=== PATIENT | female | born 1935 | race Caucasian/White ===

== ENCOUNTER 2018-09-25 10:02 | Inpatient (IN) | payer OTHER, BC ==
--- NOTE | 2018-09-25 06:27 | PDHPUP ---
History & Physical Update H&P update statement: This history and physical update is based on an assessment of the patient which was completed after admission or registration (within 24 hours), but prior to the surgery/procedure. H&P update: H&P reviewed & patient examined, no change in patient's condition since H&P completed
[~2018-09-25 10:02] MED LIST: TRANEXAMIC ACID 3,000 MG/50 ML BAG IRR ONE
[2018-09-25] MEDS ORDERED: ACETAMINOPHEN 325 MG TAB PO ONE (10:20)
[2018-09-25] MEDS ORDERED: FAMOTIDINE 20 MG TAB PO ONE (10:20)
[2018-09-25] MEDS ORDERED: DEXAMETHASONE 4 MG/ML VIAL IVP ONE (10:20)
[2018-09-25] MEDS ORDERED: ceFAZolin 2 GM/DEXTROSE 100 ML IV ONE (10:20)
[2018-09-25] MEDS ORDERED: LR 1,000 ML IV ONE (10:21)
[2018-09-25] MEDS ORDERED: LIDOCAINE 1% 2 ML INJ ID PRN (10:21)
[2018-09-25] MEDS ORDERED: ROPIVACAINE 0.2% 80 MG, EPINEPHrine 0.2 MG, KETOROLAC TROMETHAMINE 30 MG in SYRINGE 0 ML IU ONE (12:00)
[2018-09-25] MEDS ORDERED: TRANEXAMIC ACID 3,000 MG in NS (SYRINGE) 50 ML IRR ONE (12:00)
[2018-09-25] MEDS ORDERED: HYDROmorphONE/DILAUDID 2 MG/ML INJ IVP PRN (12:05)
[2018-09-25] MEDS ORDERED: MIDAZOLAM 2 MG/2 ML VIAL IVP ONE (12:05)
[2018-09-25] MEDS ORDERED: oxyCODONE IR 5 MG TAB PO PRN ×2 (12:05→13:43)
[2018-09-25] MEDS ORDERED: NALOXONE HCL 0.4 MG/ML INJ IVP PRN (12:05)
[2018-09-25] MEDS ORDERED: ACETAMINOPHEN 500 MG TAB PO PRN (12:05)
[2018-09-25] MEDS ORDERED: PROMETHAZINE HCL 25 MG/ML INJ IVP PRN ×2 (12:05→13:43)
[2018-09-25] MEDS ORDERED: ONDANSETRON 4 MG/2 ML VIAL IVP PRN ×2 (12:05→13:43)
--- NOTE | 2018-09-25 12:05 | PDANEPAE ---
ANE History of Present Illness R TKA ANE Past Medical History - Cardiovascular History Hx Hypertension: Yes Hx Arrhythmias: No Hx Chest Pain: No Hx Coronary Artery / Peripheral Vascular Disease: No Hx CHF / Valvular Disease: No Hx Palpitations: No - Pulmonary History Hx COPD: No Hx Asthma/Reactive Airway Disease: No Hx Recent Upper Respiratory Infection: No Hx Oxygen in Use at Home: No Hx Sleep Apnea: No Sleep Apnea Screening Result - Last Documented: Negative - Neurologic History Hx Cerebrovascular Accident: No Hx Seizures: No Hx Dementia: No - Endocrine History Hx Diabetes: No - Renal History Hx Renal Disorders: No - Liver History Hx Hepatic Disorders: No - Neurological & Psychiatric Hx Hx Neurological and Psychiatric Disorders: No - Cancer History Hx Cancer: No Cancer History Comment: COLON CA IN PAST - Congenital Disorder History Hx Congenital Disorders: No - GI History Hx Gastrointestinal Disorders: No - Other Health History Other Health History: PSORIASIS - Chronic Pain History Chronic Pain: No - Surgical History Prior Surgeries: ARTHROSCOPY R KNEE. COLON RESECTION. COLONOSCOPY ANE Review of Systems Review of Systems: - Exercise capacity METS (RN): 4 METS ANE Patient History - Allergies Allergies/Adverse Reactions: No Known Allergies Allergy (Verified 09/12/18 12:44) - Home Medications Home Medications: Atorvastatin Calcium [Lipitor 20 mg (*)] 20 mg PO Q2D 09/12/18 [Last Taken 09/23] Losartan/Hctz 50/12.5 [Hyzaar 50/12.5MG (*)] 0.5 tab PO DAILY 09/12/18 [Last Taken 09/25/18 08:30] - NPO status NPO Since - Liquids (Date): 09/25/18 NPO Since - Liquids (Time): 08:30 NPO Since - Solids (Date): 09/24/18 NPO Since - Solids (Time): 19:00 - Smoking Hx Smoking Status: Never smoked ANE Labs/Vital Signs - Vital Signs Blood Pressure: 124/87 Heart Rate: 72 Respiratory Rate: 16 O2 Sat (%): 93 Height: 157.48 cm Weight: 69.4 kg ANE Physical Exam - Airway Neck exam: FROM Mallampati Score: Class 2 Mouth exam: normal dental/mouth exam - Pulmonary Pulmonary: clear to auscultation - Cardiovascular Cardiovascular: regular rate and rhythym - ASA Status ASA Status: II ANE Anesthesia Plan Anesthesia Plan: spinal
[2018-09-25] MEDS ORDERED: LIDOCAINE 2% 5 ML SDV ONE (12:16)
[2018-09-25] MEDS ORDERED: PROPOFOL/EMULSION 500 MG/50 ML BOTTLE IV ONE (12:16)
[2018-09-25] MEDS ORDERED: BUPIVACAINE/DEXTROSE 7.5MG/ML 2 ML SPINAL AMP SP ONE (12:19)
[2018-09-25] MEDS ORDERED: VANCOMYCIN 1 GM VIAL ONE (12:29)
[2018-09-25] MEDS ORDERED: fentaNYL 100 MCG/2 ML INJ ONE ×2 (12:37→14:17)
[2018-09-25] MEDS ORDERED: ROPIVACAINE HCL 150 MG/30 ML INJ ONE (13:24)
[2018-09-25] MEDS ORDERED: PROMETHAZINE HCL 25 MG SUPPR PR PRN (13:43)
[2018-09-25] MEDS ORDERED: TEMAZEPAM 15 MG CAP PO PRN (13:43)
[2018-09-25] MEDS ORDERED: diphenhydrAMINE 25 MG CAP PO PRN (13:43)
[2018-09-25] MEDS ORDERED: BISACODYL 10 MG SUPP PR PRN (13:43)
[2018-09-25] MEDS ORDERED: POLYETHYLENE GLYCOL 3350 17 GM PKT PO PRN (13:43)
[2018-09-25] MEDS ORDERED: CYCLOBENZAPRINE 10 MG TAB PO PRN (13:43)
[2018-09-25] MEDS ORDERED: DIPHENOXYLATE/ATROPINE LOMOTIL 1 TAB PO PRN (13:43)
[2018-09-25] MEDS ORDERED: MAGNESIUM HYDROXIDE 30 ML UDCUP PO PRN (13:43)
[2018-09-25] MEDS ORDERED: ONDANSETRON DISINTEGRATING 4 MG TAB PO PRN (13:43)
[2018-09-25] MEDS ORDERED: METOCLOPRAMIDE 10 MG/2 ML VIAL IVP PRN (13:43)
[2018-09-25] MEDS ORDERED: LACTULOSE 20 GM/30 ML UDCUP PO PRN (13:43)
--- NOTE | 2018-09-25 13:43 | POSTOPPROG ---
Post Op Note Date of Operation: 09/25/18 Surgeon: Dionicio Fuentes Doughnut Batter Mixer: arlene fuentes PA-C and Mabel Tidwell PA-C Anesthesiologist: dr. hilton Anesthesia: Spinal, Other (Specify) (adductor canal block) Pre-op Diagnosis: right knee OA Post-op Diagnosis: same Indication: right knee pain Procedure: R TKA Findings: severe knee OA Inf/Abcess present in the surg proc area at time of surgery?: No EBL: 50-100
--- NOTE | 2018-09-25 13:54 | POSTANESTH ---
Post Anesthetic Evaluation Cardiovascular Status: Normal, Stable Respiratory Status: Normal, Stable Level of Consciousness/Mental Status: Can Participate in Eval, Alert and Oriented Pain Control: Adequate, Prn Tx Ordered Nausea/Vomiting Control: Adequate, Prn Tx Ordered Complications Possibly Related to Anesthesia: None Noted
[2018-09-25] MEDS ORDERED: LR 1,000 ML IV SCH (14:00)
--- NOTE | 2018-09-25 14:12 | PDMN ---
Medical Necessity Medical necessity: [facility] S700 Knee Arthroplasty, Total, A-2 days: 83 yo s/p R TKA , meets IP criteria for advanced age, pain control, Hx HTN, colon ca.
[2018-09-25] MEDS: fentaNYL 100 MCG/2 ML INJ IVP PRN ×2 (14:19→15:18)
[2018-09-25] MEDS ORDERED: oxyCODONE IR 5 MG TAB ONE (15:25)
[2018-09-25] MEDS: ACETAMINOPHEN 325 MG TAB PO SCH ×2 (18:38→23:00)
[2018-09-25] MEDS: SENNOSIDES/DOCUSATE SODIUM TAB PO SCH (21:29)
[2018-09-25] MEDS: FAMOTIDINE 20 MG TAB PO SCH (21:29)
[2018-09-25] MEDS: ASPIRIN 81 MG CHEWABLE TAB PO SCH (21:29)
[2018-09-25] MEDS: ceFAZolin 2 GM/DEXTROSE 100 ML IV SCH (21:30)
[2018-09-26] MEDS: ceFAZolin 2 GM/DEXTROSE 100 ML IV SCH (05:28)
[2018-09-26] MEDS: ACETAMINOPHEN 325 MG TAB PO SCH ×2 (05:28→11:32)
[2018-09-26] MEDS: ASPIRIN 81 MG CHEWABLE TAB PO SCH (08:34)
[2018-09-26] MEDS: FAMOTIDINE 20 MG TAB PO SCH (08:34)
[2018-09-26] MEDS: SENNOSIDES/DOCUSATE SODIUM TAB PO SCH (08:34)
[2018-09-26 08:37] VITALS: BP 99/59
[2018-09-26] MEDS ORDERED: LOSARTAN/HCTZ 50/12.5 1 TAB PO SCH (09:00)
--- NOTE | 2018-09-26 10:53 | SOAPPROG ---
SOAP Progress Note Assessment/Plan: Assessment: Patient is doing well POD 1 s/p R TKA Pain management: pain is well controlled on oral pain meds. VTE ppx: recommend aspirin 81 mg BID for 4 weeks, cont MARTHA and SCDs Anemia: level is expected initially postop. Asymptomatic. Continue to monitor D/c planning: Patient has done better than anticipated and would like to be discharged to home today. Patient must be released from PT before discharge to home. Plan: 09/26/18 10:51 Subjective: patient is doing well ,denies chest pain and n/v Objective: Vital Signs Temp Pulse Resp BP Pulse Ox 36.6 C 62 17 99/59 L 93 09/26/18 07:30 09/26/18 07:30 09/26/18 07:30 09/26/18 08:37 09/26/18 07:30 Laboratory Results 09/26/18 05:02 09/26/18 05:02 09/25/18 09/26/18 09/27/18 05:59 05:59 05:59 Intake Total 800 400 Output Total 380 400 Balance 420 0 RLE: incision dressing is clean and dry, NVI, +pf/df ICD10 Worksheet Patient Problems: Problems Problem Status Onset Primary localized osteoarthritis of right knee Acute
--- NOTE | 2018-09-26 11:52 | ASMTLACE ---
LACE Length of stay for Answers: 2 days current admission Acuity / Level of Answers: Yes Care: Did the patient have an inpatient admission? Comorbidities - select Answers: Other Notes: HTN all that apply # of Emergency department Answers: 0 visits in the last 6 months Score: 6 Date Signed: 09/26/2018 11:51 AM Electronically Signed By:ION Vargas
[2018-09-27] MEDS ORDERED: ATORVASTATIN CALCIUM 20 MG TAB PO SCH (09:00)
--- NOTE | 2018-09-27 20:34 | GOP ---
DATE OF OPERATION: 09/25/2018 SURGEON: Blair John MD ORTHO RN: AMY Miles ANESTHESIA: Spinal. PREOPERATIVE DIAGNOSIS: Right knee osteoarthritis. POSTOPERATIVE DIAGNOSIS: Right knee osteoarthritis. PROCEDURE PERFORMED: Total knee arthroplasty. FINDINGS: ESTIMATED BLOOD LOSS: 30 cc. INDICATIONS: This is an 83-year-old female with severe and progressive pain and deformity of the rig ht knee unresponsive to conservative care. Risks and benefits of the surgical intervention were expl ained in detail. DESCRIPTION OF PROCEDURE: The patient was brought to the operative room and placed on the table in t he supine position. Spinal anesthesia was induced without difficulty. A pneumatic tourniquet was ap plied about the right proximal thigh, and the leg was prepped and draped in a sterile fashion. The l eg warner was applied. After exsanguination by elevation the tourniquet was inflated to 250 mm of me rcury. Incision was made anterior medial from the tibial tuberosity to a point 2 cm proximal to the superior pole of the patella. Medial parapatellar arthrotomy was carried out from the superior pole of the p atella and posteriorly in line with the fibers of the Type II VMO. The medial collateral ligament wa s elevated and the infrapatellar fat pad was resected. The patella was everted and the articular surface was excised. A 32 mm patellar button was placed. T he distal femoral guide hole was drilled and the 6 degree alignment dewayne was placed. A 10 mm distal f emoral cut was made without difficulty. Attention was turned to the tibia and a standard 9 mm cut based on the lateral tibial condyle was per formed. The tibial articular surface was excised without difficulty. Attention was turned back to the femur and a size 3 Triathlon femoral cutting block was positioned. Anterior, posterior, and chamfer cuts were made, followed by the intercondylar box cut. The knee was extended and the remnants of the medial and lateral meniscus were excised. The posterio r capsule was injected with ropivacaine, epinephrine and Toradol. A size 3 MIS mini-keel tibial tray was positioned. Trial reduction was then carried out. There was excellent range of motion, alignme nt, and stability using the 13 mm polyethylene. All trials were then removed. The joint was thoroughly irrigated and carefully dried. Two packages of cement and 2 grams of vancomycin were mixed in the vacuum mixer and placed on the fixation surface s of all surfaces of the components. The components were implanted and all excess cement was thoroug hly removed. The permanent 13 mm polyethylene X3 was placed without difficulty. The tourniquet was deflated and all bleeders were coagulated. The wound was thoroughly irrigated and closed using interrupted sutures of 2-0 Vicryl for the joint capsule. The subcu was closed with 3-0 Vicryl and the skin with 4-0 Monocryl. Dermabond and Steri-Strips were applied followed by a compre ssive dressing. The patient was then moved from the operating room to the recovery room in good cond ition, having tolerated the procedure well. PATHOLOGY: Severe tricompartmental osteoarthritis. /[id number]/MODL
--- NOTE | 2018-09-30 13:46 | GDS ---
ADMISSION DIAGNOSIS: Right knee osteoarthritis. DISCHARGE DIAGNOSIS: Right knee osteoarthritis. PROCEDURE: Right total knee arthroplasty. VTE PROPHYLAXIS: Recommend aspirin 81 mg twice daily for 4 weeks. BRIEF DESCRIPTION OF HOSPITAL STAY: Patient was admitted for an elective joint arthroplasty. The pa charlotte tolerated the procedure well and has passed physical therapy. The patient was given appropriat e antibiotic prophylaxis and venous thromboembolism prophylaxis. The patient's pain was well control led on oral pain medication, patient was holding down food, and had urinated. Decision was made to d ischarge the patient. The patient was given post-operative prescriptions pre-operatively. PLAN: To follow up with Dr. John at [facility] in 3 weeks. /[id number]/MODL
== END 2018-09-26 12:07 | disposition home or self-care (01) | DRG 470 ==
LOC: F1N 10:02 → F3N 10:12
PROVIDERS: ADMIT Orthopaedic Surgery; ATTEND Orthopaedic Surgery
PROC: 0SRC0J9 Replacement of Right Knee Joint with Synthetic Substitute, Cemented, Open Approach (ICD-10-PCS; principal; 2018-09-25 12:00)
DX: M17.11 Unilateral primary osteoarthritis, right knee (principal); I10 Essential (primary) hypertension; E78.00 Pure hypercholesterolemia, unspecified; Z85.038 Personal history of other malignant neoplasm of large intestine
CPT/HCPCS: 97116-GP; 97161-GP; C1713; J0171; J0690; J1100; J1885; J2250; J2704; J2795; J3010; J3370